=== PATIENT | female | born 1960 | race Caucasian/White ===

== ENCOUNTER → 2020-05-03 09:35 | Outpatient (CLI) | payer MEDICARE, SELFPAY ==
--- NOTE | ~2020-05-03 | CT_ITS ---
EXAMINATION: CT abdomen pelvis wo con DATE: 05/03/2020 10:33 INDICATION: Unspecified abdominal pain TECHNIQUE: Computed tomography (CT) of the abdomen and pelvis was performed without intravenous contr ast. The dose-length product (DLP) was 945.46 mGy-cm. Automated exposure control and iterative recons truction technique were employed. COMPARISON: 02/11/2011 FINDINGS: Minimal dependent atelectasis is present in the lung bases. The heart size is normal. The l iver is diffusely low in attenuation when compared with the spleen, consistent with hepatic steatosis . The gallbladder is surgically absent. The spleen, pancreas, and adrenal glands are normal. The kidn eys are unremarkable. There is calcified atherosclerosis of the aorta and many of the other arteries. No pathologically enlarged abdominal or pelvic lymph nodes are identified. There is no free intraper itoneal gas. A chronic focally dilated short segment of small bowel is seen adjacent to a surgical an astomosis. A neurostimulator is implanted in the soft tissues of the right buttock with its leads cou rsing into the right pelvis. There are surgical clips in the left pelvis and right inguinal region. T here is mild lumbar spondylosis. A fat-containing umbilical hernia is noted. IMPRESSION: 1. No CT correlate for the patient's symptoms. 2. Short segment of chronically dilated small bowel adjacent to a surgical anastomosis in the mid abd omen. 3. Diffuse hepatic steatosis. Reviewed, dictated and finalized at location A. [facility] IMPRESSION: 1. No CT correlate for the patient's symptoms. 2. Short segment of chronically dilated small bowel adjacent to a surgical anas tomosis in the mid abdomen. 3. Diffuse hepatic steatosis.
== END ==
PROVIDERS: PCP Nurse Practitioner Family; Visit Provider Nurse Practitioner Family
DX: R10.9 Unspecified abdominal pain (principal); K76.0 Fatty (change of) liver, not elsewhere classified
CPT/HCPCS: 74176